=== PATIENT | male | born 1995 | race Two or more races ===

== ENCOUNTER 2025-02-07 11:51 | Emergency (ER) | payer OTHER ==
[~2025-02-07] VITALS: Ht 167.6 cm; Wt 59.1 kg
[2025-02-07 12:02] VITALS: TEMP 98.1
[2025-02-07 12:59] VITALS: BP 129/95; PULSE 75; RESP 16; O2SAT 99
== END 2025-02-07 13:01 ==
LOC: EMS 11:51
DX: S63.502A Unspecified sprain of left wrist, initial encounter (principal); W19.XXXA Unspecified fall, initial encounter; Y93.89 Activity, other specified; Y92.89 Other specified places as the place of occurrence of the external cause; Y99.8 Other external cause status
CPT/HCPCS: 99283